=== PATIENT | male | born 1970 | race Hispanic/Latino ===

== ENCOUNTER → 2017-08-26 | Outpatient (CLI) | payer BC ==
[~2017-08-26] MED LIST: IOPAMIDOL 370 MG/ML 200 ML INFUS..BTL INJ ONE; SODIUM CHLORIDE 0.9% 50ML 50 ML ONE
--- NOTE | 2017-08-26 14:07 | Diagnostic Imaging Report ---
PROCEDURE: CT ABDOMEN AND PELVIS WITH CONTRAST TECHNIQUE: The abdomen and pelvis were scanned utilizing a multidetector helical scanner from the diaphragm to the lesser trochanter after the IV administration of 100 cc of Isovue 370 and the oral administration of water. Coronal and sagittal multiplanar reformations were obtained. COMPARISON: None. INDICATIONS: PERIUMBILICAL PAIN, APPENDICITIS FINDINGS: LOWER THORAX: Normal. HEPATOBILIARY: No focal hepatic lesions. No biliary ductal dilatation. SPLEEN: No splenomegaly. PANCREAS: No focal masses or ductal dilatation. ADRENALS: No adrenal nodules. KIDNEYS/URETERS: No hydronephrosis, stones, or solid mass lesions. PELVIC ORGANS/BLADDER: Mildly enlarged prostate with dystrophic calcifications. The bladder is incompletely distended. PERITONEUM / RETROPERITONEUM: No free air or fluid. LYMPH NODES: No lymphadenopathy. VESSELS: Unremarkable. GI TRACT: No distention or wall thickening. There are few sigmoid diverticula without evidence of acute inflammation. The appendix is normal. BONES AND SOFT TISSUES: Vasectomy clips are noted. Small, fat-containing umbilical hernia. No bowel involvement. IMPRESSION: Small, fat-containing umbilical hernia without bowel involvement. Otherwise no specific findings to explain the patient's symptoms. The appendix is normal. Dictated by: Greg Patrick M.D. on 08/26/2017 at 14:08 Electronically approved by: Greg Patrick M.D. on 08/26/2017 at 14:08
== END ==
LOC: CT 12:39
PROVIDERS: ATTEND Family Medicine
DX: R10.33 Periumbilical pain (principal)
CPT/HCPCS: 74177; Q9967